=== PATIENT | male | born 1990 | race African-American/Black ===

== ENCOUNTER 2019-12-21 10:04 | Emergency (ER) | payer MEDICAID ==
[~2019-12-21] VITALS: Ht 177.8 cm; Wt 79.0 kg
[2019-12-21] MEDS ORDERED: KETOROLAC 30MG/ML VIAL IV STA (10:19)
[2019-12-21] MEDS ORDERED: ONDANSETRON HCL 4MG/2ML INJ IV ONE (10:45)
[2019-12-21 11:17] LABS: BASOPHILS % 0.1 % (0.0-2.0); EOSINOPHILS % 0.3 % (0.0-5.0); HEMATOCRIT. 35.5 % (42.0-52.0); HEMOGLOBIN. 12.2 g/dL (14.0-18.0); LYMPHOCYTES % 9.3 % (20.0-50.0); MEAN CORPUSCULAR HEMOGLOBIN 34.7 pg (28.0-32.0); MEAN CORPUSCULAR VOLUME 101.3 fL (80.0-94.0); MEAN PLATELET VOLUME 7.8 fl (7.4-10.4); NEUTROPHILS % 85.3 % (40.0-76.0); PLATELET 212 x1000/uL (130-400); RED CELL DISTRIBUTION WIDTH 17.7 % (11.6-14.6)
[2019-12-21 11:22] LABS: CHLORIDE 97 mEq/L (98-107)
[2019-12-21 11:31] LABS: ETHANOL BLOOD < 10 mg/dL
[2019-12-21 12:00] VITALS: BP 132/60
[2019-12-21] MEDS ORDERED: POTASSIUM CHLORIDE 20MEQ TABLET SR PO ONE (12:30)
== END 2019-12-21 12:45 | disposition home or self-care (01) ==
LOC: ER 10:04
DX: G40.909 Epilepsy, unspecified, not intractable, without status epilepticus (principal); E87.6 Hypokalemia; R03.0 Elevated blood-pressure reading, without diagnosis of hypertension; F10.20 Alcohol dependence, uncomplicated; Y90.0 Blood alcohol level of less than 20 mg/100 ml; F12.90 Cannabis use, unspecified, uncomplicated
CPT/HCPCS: 36415; 70450; 80053; 80320; 85025; 96374; 96375; 99284; J1885; J2405; G0480

== ENCOUNTER 2019-12-24 12:36 | Emergency (ER) | payer MEDICAID ==
[~2019-12-24] VITALS: Ht 177.8 cm; Wt 73.0 kg
[2019-12-24] MEDS ORDERED: IBUPROFEN 600MG TABLET PO STA (13:17)
[2019-12-24 15:46] LABS: BASOPHILS % 0.3 % (0.0-2.0); CHLORIDE 97 mEq/L (98-107); EOSINOPHILS % 0.5 % (0.0-5.0); HEMATOCRIT. 33.4 % (42.0-52.0); HEMOGLOBIN. 11.7 g/dL (14.0-18.0); LYMPHOCYTES % 9.7 % (20.0-50.0); MEAN CORPUSCULAR HEMOGLOBIN 34.9 pg (28.0-32.0); MEAN PLATELET VOLUME 7.2 fl (7.4-10.4); MONOCYTES % 11.8 % (2.0-8.0); NEUTROPHILS % 77.7 % (40.0-76.0); PLATELET 266 x1000/uL (130-400); RED BLOOD CELL COUNT 3.34 mill/uL (4.7-6.1); RED CELL DISTRIBUTION WIDTH 17.2 % (11.6-14.6)
[2019-12-24] MEDS ORDERED: POTASSIUM CHLORIDE 20MEQ TABLET SR PO NR (16:15)
[2019-12-24] MEDS ORDERED: SODIUM CHLORIDE 0.9% 1,000 ML IV ONE (16:15)
[2019-12-24] MEDS: KCL 10MEQ/50ML PREMIX 100 ML IV SCH ×2 (17:36→18:05)
[2019-12-24 19:14] LABS: CHLORIDE 99 mEq/L (98-107)
[2019-12-24 21:00] VITALS: BP 145/95
== END 2019-12-24 21:26 | disposition short-term general hospital (02) ==
LOC: ER 12:58 → CANBEDREQ 21:14 → ER 21:26
DX: S43.005A Unspecified dislocation of left shoulder joint, initial encounter (principal); S43.004A Unspecified dislocation of right shoulder joint, initial encounter; E87.6 Hypokalemia; G40.909 Epilepsy, unspecified, not intractable, without status epilepticus; F12.10 Cannabis abuse, uncomplicated; X58.XXXA Exposure to other specified factors, initial encounter; Y93.89 Activity, other specified; Y92.010 Kitchen of single-family (private) house as the place of occurrence of the external cause
CPT/HCPCS: 36415; 73030; 80048; 85025; 96360; 96361; 99285; J3480